=== PATIENT | female | born 2000 | race Caucasian/White ===

== ENCOUNTER 2022-12-27 00:05 | Emergency (ER) | payer MEDICAID, OTHER ==
[~2022-12-27] VITALS: Ht 170.2 cm; Wt 122.9 kg
[2022-12-27 00:50] VITALS: BP 144/84; TEMP 98.1; O2SAT 100
== END 2022-12-27 01:49 | disposition home or self-care (01) ==
LOC: ER 00:09
DX: K64.9 Unspecified hemorrhoids (principal); F17.200 Nicotine dependence, unspecified, uncomplicated

== ENCOUNTER 2023-05-15 22:16 | Emergency (ER) | payer MEDICAID, OTHER ==
[~2023-05-15] VITALS: Ht 170.2 cm; Wt 122.5 kg
[2023-05-15 22:34] VITALS: BP 137/89; TEMP 98.8; O2SAT 94
[2023-05-15] MEDS ORDERED: AMOX-430 PO (22:47)
[2023-05-15] MEDS ORDERED: IBUP-1953 PO (22:47)
== END 2023-05-15 22:53 | disposition home or self-care (01) ==
LOC: ER 22:16
DX: R59.0 Localized enlarged lymph nodes (principal); E11.9 Type 2 diabetes mellitus without complications